=== PATIENT | female | born 1940 | race Caucasian/White ===

== ENCOUNTER 2021-01-29 07:18 | Day surgery (SDC) | payer MEDICARE, BC ==
[2021-01-22 11:44] LABS: BASOPHILS % (AUTO) 0.4 % (0-1); EOSINOPHILS # (AUTO) 0.2 X10'3 (0-0.9); EOSINOPHILS % (AUTO) 4.5 % (0-6); LYMPHOCYTES # (AUTO) 1.2 X10'3 (1.1-4.8); LYMPHOCYTES % (AUTO) 22.6 % (21-51); MEAN CORPUSCULAR HEMOGLOBIN 31.1 PG (27.0-31.0); MEAN CORPUSCULAR HGB CONC 33.3 g/dL (33.0-36.5); MEAN CORPUSCULAR VOLUME 93.3 FL (78-98); MEAN PLATELET VOLUME 8.5 FL (7.4-10.4); MONOCYTES # (AUTO) 0.5 X10'3 (0-0.9); MONOCYTES % (AUTO) 9.1 % (2-12); NEUTROPHILS # (AUTO) 3.5 X10'3 (1.8-7.7); NEUTROPHILS % (AUTO) 63.4 % (42-75); PRE OP HEMATOCRIT 43.7 % (35.0-45.0); PRE OP HEMOGLOBIN 14.5 g/dL (12.0-16.0); PRE OP PLATELET COUNT 216 X10'3 (140-440); RED BLOOD COUNT 4.68 X10'6 (4.20-5.60); RED CELL DISTRIBUTION WIDTH 13.6 % (11.5-14.5)
[2021-01-22 12:01] LABS: ALBUMIN 3.7 G/DL (3.4-5.0); ALBUMIN/GLOBULIN RATIO 1.1 (1.1-1.5); ALKALINE PHOSPHATASE 39 IU/L (46-116); BLOOD UREA NITROGEN 19 MG/DL (7-18); BUN/CREATININE RATIO 20.4 (6.6-38.0); CALCIUM 9.3 MG/DL (8.5-10.1); CHLORIDE 108 MMOL/L (99-107); CREATININE 0.93 MG/DL (0.40-0.90); PRE OP ALT 15 U/L (30-65); PRE OP ANION GAP 9 (8-16); PRE OP AST 14 U/L (10-37); PRE OP BILIRUB, TOTAL 0.4 MG/DL (0.0-1.0); PRE OP GLUCOSE 117 MG/DL (70-104); PRE OP SODIUM 146 MMOL/L (135-145); TOTAL CARBON DIOXIDE 29.1 MMOL/L (24-32); TOTAL PROTEIN 7.1 G/DL (6.4-8.2); eGFR 58 ML/MIN
[~2021-01-29] VITALS: Ht 170.2 cm; Wt 88.7 kg
[~2021-01-29 07:18] MED LIST: AMLO5TAB16 PO; APIX5TAB3 PO; BUPIVAcaine/PF 2.5mg/ml (0.25%) 10ml vial ONE; CELE-85 PO; CLINDAmcin 900mg/NS 50ml IVPB 50 ML IV ONE; DOCUMENT DATE & TIME OF BETA-BLOCKER PO ONE; FAMO40TA58 PO; FENO145T25 PO; FURO20TA4 PO; HYDR-4070 PO; METF-950 PO; METO-384 PO; MONT10TA32 PO; PARO20TA6 PO; albuterol 2.5 MG/3 ML nebule NEB PRN; famotidine 20mg tablet PO ONE; ringers solution, lacted 1,000 ML IV SCH
[2021-01-29] MEDS ORDERED: clindamycin-Cleocin 900mg/D5W 50 ML IV ONE (07:22)
[2021-01-29 07:30] VITALS: BP 156/79
[2021-01-29] MEDS ORDERED: fentaNYL/PF 50MCG/1 ML 2ML syringe ONE (08:54)
[2021-01-29] MEDS ORDERED: midazolam 1 mg/ML 2ml injection ONE (08:56)
[2021-01-29] MEDS ORDERED: propofol inj 20 ML IV ONE (09:02)
[2021-01-29] MEDS ORDERED: LIDOcaine 0.5% (5mg/ml) 50ml vial ONE (09:15)
[2021-01-29 09:20] VITALS: BP 129/61
--- NOTE | 2021-01-29 09:20 | NUR ---
Received from OR via [facility], accompanied by Anesthesiologist SON and report given by Anesthesiolgist. VSS, O2 AT 2 L. VIA NC. PT. AWAKE AND CONVERSING. DENIES PAIN, SENSATION AND MOVEMENT INTACT ALONG WITH PULSES. IV IN L. AC 20 G. CDI LR INFUSING. GAUZE AND STOCKINETTE WITH TAPE CDI ON L. HAND/WRIST. Addendum: 01/29/21 at 0943 by Lucretia Omalley RN Amended: Links added.
[2021-01-29] MEDS ORDERED: hydrALAZINE 20mg/ml inj. IV PRN (09:25)
[2021-01-29] MEDS ORDERED: ringers solution, lacted 1,000 ML IV SCH (09:25)
[2021-01-29] MEDS ORDERED: meperidine/PF 25mg/ml syringe IV PRN (09:25)
[2021-01-29] MEDS ORDERED: ondansetron/PF 4mg/2ml inj IV PRN (09:25)
[2021-01-29] MEDS ORDERED: acetaminophen 1,000mg/100ml IV 100 ML IV PRN (09:25)
[2021-01-29] MEDS ORDERED: HYDROmorphone/PF 0.2 MG/ML SYRINGE IV PRN ×2 (09:25)
[2021-01-29] MEDS ORDERED: fentaNYL/PF 50MCG/1 ML 2ML syringe IV PRN ×2 (09:25)
[2021-01-29] MEDS ORDERED: proCHLORperazine 10 MG/2 ml inj IV PRN (09:25)
[2021-01-29] MEDS ORDERED: labetalol 20mg/4ml (5mg/ml) syringe IV PRN (09:25)
[2021-01-29 09:30] VITALS: BP 126/58
[2021-01-29 09:40] VITALS: BP 133/68
[2021-01-29 09:50] VITALS: BP 166/90
[2021-01-29 10:00] VITALS: BP 155/77
--- NOTE | 2021-01-29 10:10 | NUR ---
PT. DC CRITERIA MET. PT. CONVERSING AND ABLE TO AMBULATE AND ASSIST WITH DRESSING SELF. ABLE TO DRINK FLUIDS AND VOID X1, IV REMOVED. R. HAND DRESSING CDI. DENIES PAIN. SENSATION AND MOVEMENT INTACT. INSTRUCTIONS GIVEN AND UNDERSTOOD. ICE BAG GIVEN TO PT. PT. TRANSPORTED TO CAR VIA WC. ABLE TO TRANSFER TO CAR. Addendum: 01/29/21 at 1012 by Lucretia Omalley RN Amended: Links added.
== END 2021-01-29 10:10 | disposition home or self-care (01) ==
LOC: PAS 07:18
PROVIDERS: ATTEND Orthopaedic Surgery Hand Surgery
DX: G56.01 Carpal tunnel syndrome, right upper limb (principal); M65.331 Trigger finger, right middle finger; K21.9 Gastro-esophageal reflux disease without esophagitis; F41.9 Anxiety disorder, unspecified; M19.90 Unspecified osteoarthritis, unspecified site; E11.9 Type 2 diabetes mellitus without complications; I10 Essential (primary) hypertension; I47.1 Supraventricular tachycardia; Z20.822 Contact with and (suspected) exposure to COVID-19; Z79.899 Other long term (current) drug therapy; Z79.01 Long term (current) use of anticoagulants; Z88.5 Allergy status to narcotic agent; Z88.0 Allergy status to penicillin; Z88.8 Allergy status to other drugs, medicaments and biological substances; Z90.49 Acquired absence of other specified parts of digestive tract; Z98.890 Other specified postprocedural states; Z90.710 Acquired absence of both cervix and uterus; Z87.891 Personal history of nicotine dependence; Z72.89 Other problems related to lifestyle; Z96.652 Presence of left artificial knee joint; Z86.73 Personal history of transient ischemic attack (TIA), and cerebral infarction without residual deficits; Z87.440 Personal history of urinary (tract) infections
CPT/HCPCS: 26055; 36415; 64721; 80053; 82948; 85025; J2001; J2250; J2704; J3010; J3490; U0003; U0005; Z7506; Z7512; A4215; J7120